=== PATIENT | male | born 1940 | race Caucasian/White ===

== ENCOUNTER 2022-05-29 06:44 | Observation (INO) | payer MEDICARE ==
[2022-05-23 14:08] LABS: BASOPHILS % (AUTO) 0.8 % (0.0-5.0); EOSINOPHILS % (AUTO) 3.6 % (0.0-8.0); HEMATOCRIT 40.9 % (42-54); LYMPHOCYTES % (AUTO) 21.7 % (21.0-51.0); MEAN CORPUSCULAR HEMOGLOBIN 30.4 pg (27.0-33.0); MEAN CORPUSCULAR HGB CONC 32.3 g/dL (32.0-36.0); MEAN CORPUSCULAR VOLUME 94.2 fL (79-99); MONOCYTES % (AUTO) 8.8 % (3.0-13.0); NEUTROPHILS % (AUTO) 64.5 % (40.0-77.0); PLATELET COUNT (AUTO) 190 K/uL (130-400); RED BLOOD CELL COUNT(AUTO) 4.34 MIL/uL (4.50-6.20); RED CELL DISTRIBUTION WIDTH 12.9 % (11.0-15.5); WHITE BLOOD COUNT (AUTO) 6.4 K/uL (4.8-10.8)
[2022-05-23 14:10] LABS: APPEARANCE,URINE CLOUDY (CLEAR); BILIRUBIN,URINE SMALL mg/dL (NEGATIVE); COLOR,URINE YELLOW (YELLOW); GLUCOSE, URINE (UA) NEGATIVE (NEGATIVE); KETONES,URINE 5 mg/dL (NEGATIVE); LEUKOCYTE ESTERASE ,URINE MODERATE Leu/uL (NEGATIVE); NITRATE,URINE POSITIVE (NEGATIVE); OCCULT BLOOD,URINE LARGE (NEGATIVE); PROTEIN,URINE 100 mg/dL (NEGATIVE)
[2022-05-23 14:24] LABS: INR 1.36 (0.85-1.15); PROTHROMBIN TIME 14.6 SEC (9.6-11.6)
[2022-05-23 14:26] LABS: PARTIAL THROMBOPLASTIN TIME 36.1 SEC (26.3-35.5)
[2022-05-23 14:29] LABS: BACTERIA,URINE Moderate /HPF (None Seen); RBC,URINE TNTC /HPF (0-1); SQUAMOUS EPITHELIAL CELL,UR Rare /HPF (0-2); WBC,URINE 26-50 /HPF (0-1)
[2022-05-23 14:59] LABS: CREATININE 0.8 mg/dL (0.5-1.5); POTASSIUM 4.2 mmol/L (3.5-5.1)
[2022-05-28 10:21] VITALS: BP 153/69
[~2022-05-29] VITALS: Ht 180.3 cm; Wt 87.2 kg
[2022-05-29] VITALS (28 sets, daily range): BP systolic 116–162; BP diastolic 52–96
[~2022-05-29 06:44] MED LIST: AMLO-257 PO; ATOR20TA65 PO; FINA5TAB41 PO; FLUT15.845 NS; GABA-529 PO; IPRA42SP NS; LEVO-70 PO; LEVOFLOXACIN 500 MG/D5W 100 ML 100 ML IV SCH; LISI20TA24 PO; METO25TA6 PO; PHARMACY COMMUNICATION MISC SCH; PRIM50TA23 PO; RIVA20TA PO; TAMS-1 PO
[2022-05-29] MEDS ORDERED: LACTATED RINGERS 1000ML 1,000 ML IV ONE (07:40)
[2022-05-29] MEDS: GENTAMICIN SULFATE 320 MG in 0.9%NACL 100ML 100 ML IV SCH ×2 (08:00→09:05)
[2022-05-29 08:15] LABS: INR 1.05 (0.85-1.15); PROTHROMBIN TIME 11.4 SEC (9.6-11.6)
[2022-05-29 08:16] LABS: PARTIAL THROMBOPLASTIN TIME 25.6 SEC (26.3-35.5)
[2022-05-29] MEDS ORDERED: GLYCOPYRROLATE 1 MG/5 ML SYRINGE ONE (09:16)
[2022-05-29] MEDS ORDERED: PROPOFOL 10 MG/ML 20ML VIAL IV ONE (09:16)
[2022-05-29] MEDS ORDERED: ROCURONIUM 10MG/1ML SYR 10 MG/ML ML ONE (09:16)
[2022-05-29] MEDS ORDERED: FENTANYL CITRATE PF 50 MCG/1 ML 2ML VIAL ONE ×2 (09:16→11:10)
[2022-05-29] MEDS ORDERED: ONDANSETRON 4MG INJ ONE (09:57)
[2022-05-29] MEDS ORDERED: NEOSTIGMINE 5MG/5ML SYR IV ONE (09:57)
[2022-05-29] MEDS ORDERED: OPIUM/BELLADONNA ALKALOIDS 1 EACH SUPP.RECT RC ONE (11:09)
[2022-05-29 12:14] LABS: HEMATOCRIT 36.3 % (42-54); MEAN CORPUSCULAR HEMOGLOBIN 30.6 pg (27.0-33.0); MEAN CORPUSCULAR HGB CONC 33.3 g/dL (32.0-36.0); MEAN CORPUSCULAR VOLUME 91.7 fL (79-99); PLATELET COUNT (AUTO) 153 K/uL (130-400); RED BLOOD CELL COUNT(AUTO) 3.96 MIL/uL (4.50-6.20); RED CELL DISTRIBUTION WIDTH 13.1 % (11.0-15.5); WHITE BLOOD COUNT (AUTO) 5.5 K/uL (4.8-10.8)
[2022-05-29 12:30] LABS: CREATININE 0.7 mg/dL (0.5-1.5); POTASSIUM 4.1 mmol/L (3.5-5.1)
[2022-05-29 13:08] LABS: EOSINOPHILS % (MANUAL) 2 % (1-6); LYMPHOCYTES % (MANUAL) 18 % (22-44); MAN.DIFF COMMENT-IMPRESSION MANUAL DIFFERENTIAL; MONOCYTES % (MANUAL) 13 % (2-9); PLATELET MORPHOLOGY COMMENT ADEQUATE; REACTIVE LYMPHOCYTES 1 % (0-0); SEGMENTED NEUTROPHILS % 66 % (40-70)
[2022-05-29] MEDS ORDERED: TRAMADOL HCL 50 MG TABLET PO PRN (13:30)
[2022-05-29] MEDS ORDERED: ONDANSETRON 4MG INJ IVP PRN (13:30)
[2022-05-29] MEDS ORDERED: OPIUM/BELLADONNA ALKALOIDS 1 EACH SUPP.RECT RC PRN (13:30)
[2022-05-29] MEDS ORDERED: SODIUM CHLORIDE IRRIG SOLUTION 1,000 ML IR SCH (13:30)
[2022-05-29] MEDS: 0.9%NACL 1000ML 1,000 ML IV SCH (14:42)
[2022-05-29] MEDS: DOCUSATE SODIUM 100 MG CAP PO SCH (19:49)
[2022-05-29] MEDS: BACITRACIN 1 EACH PACKET TP SCH (19:49)
[2022-05-30 00:12] VITALS: BP 131/64
[2022-05-30 04:11] VITALS: BP 125/50
[2022-05-30 08:00] VITALS: BP 166/81
[2022-05-30] MEDS ORDERED: LEVOFLOXACIN 500 MG/D5W 100 ML 100 ML IV ONE (08:00)
[2022-05-30] MEDS ORDERED: AMLODIPINE 5 MG TAB PO SCH (09:19)
[2022-05-30] MEDS ORDERED: METOPROLOL TARTRATE 25 MG TAB PO SCH (09:20)
[2022-05-30] MEDS ORDERED: LISINOPRIL 20 MG TABLET PO SCH (09:20)
[2022-05-30] MEDS: DOCUSATE SODIUM 100 MG CAP PO SCH (09:22)
[2022-05-30] MEDS: BACITRACIN 1 EACH PACKET TP SCH (09:23)
[2022-05-30] MEDS: 0.9%NACL 1000ML 1,000 ML IV SCH (09:28)
[2022-05-30 10:34] VITALS: BP 148/71
[2022-05-30 12:00] VITALS: BP 117/51
== END 2022-05-30 13:20 | disposition home or self-care (01) ==
LOC: DAH 06:44 → DAHIP 06:45 → DAH 06:45 → EDSEX 09:00 → 3CH 12:04
PROVIDERS: ADMIT Urology; ATTEND Urology
DX: N40.1 Benign prostatic hyperplasia with lower urinary tract symptoms (principal); Z20.822 Contact with and (suspected) exposure to COVID-19; R33.8 Other retention of urine; Z79.899 Other long term (current) drug therapy
CPT/HCPCS: 80048 ×2; 85025 ×2; 85610 ×2; 85730 ×2; 87077; 87088; 87186; 87426; 81001; 36415 ×2; 71045; 93005; 52601; 96365; A6260; A4221; G0378 ×25; G0379; A4663; J7030; C1758; A4354; J7120; J3010 ×2; J3490; J2710; J1956 ×2; J1580 ×2; J2704; J2405; A4358; A4930; A4215; A4223; A4222; A4600